=== PATIENT | female | born 1950 | race Hispanic/Latino ===

== ENCOUNTER 2019-05-21 07:13 | Day surgery (SDC) | payer OTHER ==
[~2019-05-21] VITALS: Ht 165.1 cm; Wt 77.1 kg
[~2019-05-21 07:13] MED LIST: ALEN70TA10 PO; DORZ10DR9 OU; LEVO50TA11 PO; LISI2.5T2 PO; METF-444 PO; OMEGA PO; ROSU5TAB12 PO
[2019-05-21 07:40] VITALS: BP 105/61
[2019-05-21] MEDS: SODIUM CHLORIDE 0.9% 1000ML 1,000 ML IV ONE (07:51)
[2019-05-21] MEDS ORDERED: PROPOFOL 10 MG/ML 20ML VIAL IV ONE (08:54)
[2019-05-21 09:17] VITALS: BP 85/44
[2019-05-21 09:22] VITALS: BP 90/44
[2019-05-21 09:27] VITALS: BP 103/52
[2019-05-21 09:32] VITALS: BP 105/55
[2019-05-21 09:37] VITALS: BP 103/55
--- NOTE | 2019-05-21 09:50 | NUR ---
dc pt ready to be discharge home , waiting for ride,
--- NOTE | 2019-05-21 10:00 | NUR ---
dc pt dc home via [facility], no distress noted. pt denied any pain or discomforts. pt accompanied by sister
== END 2019-05-21 10:00 | disposition home or self-care (01) ==
LOC: DAH 07:13 → ENDO 07:13
PROVIDERS: ATTEND Internal Medicine Gastroenterology
DX: R19.06 Epigastric swelling, mass or lump (principal); K86.89 Other specified diseases of pancreas; K31.89 Other diseases of stomach and duodenum; E11.9 Type 2 diabetes mellitus without complications; E78.5 Hyperlipidemia, unspecified; E03.9 Hypothyroidism, unspecified; I10 Essential (primary) hypertension; Z85.3 Personal history of malignant neoplasm of breast; Z88.5 Allergy status to narcotic agent; Z79.899 Other long term (current) drug therapy
CPT/HCPCS: 43239; 43259; 82948 ×2; 88305; A4215; A4221; A4222; A4223; A4606; A4615; A4663; J2704; J7030

== ENCOUNTER 2019-06-12 09:03 | Day surgery (SDC) | payer OTHER ==
[~2019-06-12] VITALS: Ht 165.1 cm; Wt 79.4 kg
[2019-06-12] MEDS ORDERED: PROPOFOL 10 MG/ML 20ML VIAL IV ONE (11:06)
[2019-06-12 11:25] VITALS: BP 77/36
[2019-06-12 11:30] VITALS: BP 82/38
[2019-06-12 11:45] VITALS: BP 122/41
[2019-06-12 11:54] VITALS: BP 105/50
== END 2019-06-12 12:05 | disposition home or self-care (01) ==
LOC: DAH 09:03
PROVIDERS: ATTEND Internal Medicine
DX: R93.3 Abnormal findings on diagnostic imaging of other parts of digestive tract (principal); K31.89 Other diseases of stomach and duodenum; E78.5 Hyperlipidemia, unspecified; E66.9 Obesity, unspecified; E11.9 Type 2 diabetes mellitus without complications; Z85.3 Personal history of malignant neoplasm of breast; E03.9 Hypothyroidism, unspecified; Z88.3 Allergy status to other anti-infective agents; Z98.49 Cataract extraction status, unspecified eye; Z98.890 Other specified postprocedural states; Z79.899 Other long term (current) drug therapy; Z79.84 Long term (current) use of oral hypoglycemic drugs; Z82.49 Family history of ischemic heart disease and other diseases of the circulatory system; Z83.3 Family history of diabetes mellitus; Z68.29 Body mass index [BMI] 29.0-29.9, adult
CPT/HCPCS: 43238; 82948; 88173; 88305; A4215 ×2; A4216; A4221; A4222; A4223; A4606; A4615; A4657; A4663; J2704